=== PATIENT | female | born 1935 | race Caucasian/White ===

== ENCOUNTER 2016-06-26 19:16 | Emergency (ER) | payer MEDICARE, BC ==
[~2016-06-26] VITALS: Ht 167.6 cm; Wt 79.5 kg
[2016-06-26 19:33] VITALS: BP 169/91
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
[2016-06-26] MEDS ORDERED: TETANUS AND DIPHTHERIA TOX/PF 0.5 ML VIAL. VAX IM ONE (20:15)
[2016-06-26] MEDS ORDERED: DIPHTH,PERTUSS(ACELL),TET TOX 0.5 ML DISP.SYRIN. VAX IM ONE (20:45)
[2016-06-26] MEDS ORDERED: AMOXICILLIN/K CLAV 875/125MG TABLET. PO ONE (21:00)
== END 2016-06-26 20:48 | disposition home or self-care (01) ==
LOC: ER 19:16
DX: S61.451A Open bite of right hand, initial encounter (principal); W55.01XA Bitten by cat, initial encounter; Y93.89 Activity, other specified; Y99.8 Other external cause status; Y92.89 Other specified places as the place of occurrence of the external cause
CPT/HCPCS: 90471; 90715; 99283-25

== ENCOUNTER 2016-07-30 15:16 | Emergency (ER) | payer MEDICARE, BC ==
[~2016-07-30] VITALS: Ht 167.6 cm; Wt 79.5 kg
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
--- NOTE | 2016-07-30 16:15 | RAD ---
Right knee radiographs History: Right knee pain, fall previous night. Comparison: None. Findings: AP, lateral, and oblique views of the right knee. No acute fracture or dislocation is identified. No definite joint effusion is seen. There is evidence of medial knee soft tissue swelling. Impression: No acute osseous traumatic injury identified.
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
--- NOTE | 2016-07-30 16:41 | RAD ---
CT cervical spine without contrast History: Fall, trauma. Comparison: None. Technique: Noncontrast helical CT of the cervical spine was performed from the skull base through the T3 level. Axial, sagittal, and coronal reconstructions were obtained. One or more of the following individualized dose reduction techniques were utilized for the study: Automated exposure control Adjustment of mA and/or kV according to patient's size Use of iterative reconstruction technique. Findings: There is no evidence of acute fracture or acute malalignment. No prevertebral soft tissue swelling is identified. Multilevel degeneration is seen with facet and uncovertebral hypertrophy. Impression: 1. No acute osseous traumatic injury identified in the cervical spine. 2. Degeneration.
[2016-07-30] MEDS ORDERED: MORP15TA PO ×2 (17:16→18:23)
--- NOTE | 2016-07-30 17:16 | PHYS DOC ---
Past History Past Medical History: Depression, GERD, Hypothyroid, Kidney Stones Past Surgical History: Appendectomy, Hysterectomy, Tonsillectomy Alcohol Use: Occasionally Drug Use: None Adult General Chief Complaint Chief Complaint: UPPER EXTREMITY PAIN HPI HPI 80-year-old female presenting the emergency department today with left elbow pain and right knee pain. She sustained a fall last night after tripping over her pet cat in her kitchen. She reports hitting her head but did not lose consciousness. She has pain in her left elbow that is sharp worse with movement of the elbow intermittent and without alleviating factors. She also has pain in her right knee is worse with walking. She denies any other injuries. Review of systems is negative for chest pain abdominal pain shortness of breath confusion or numbness weakness or tingling. All other review of systems is negative unless otherwise noted in history of present illness. Pertinent physical exam findings showed that the left elbow had limited range of motion secondary to pain. Normal neurovascular status distally. 2 second cap refill. The patient's right knee has a mild effusion without any ecchymosis overlying. Normal neurovascular status distally. She has mild pain with passive range of motion of the knee. Knee joint is stable. No laxity with varus or valgus stress testing. Negative Fanta's test. Otherwise the patient has ecchymosis to the right facial region with a nontender neck with normal range of motion of the neck. ED course: 80-year-old female with left elbow pain and right knee pain and face trauma. Vital signs unremarkable other than mild chronic hypertension. And which were remarkable for a possible occult radial fracture CT of the face and head were negative for acute pathology. Patient given a sling and referred to either her primary care physician or our orthopedic team. Review of Systems Review of Systems SEE ABOVE. Allergies Allergies Allergies Coded Allergies Type Severity Reaction Last Updated Verified No Known Drug Allergies 11/23/15 No Physical Exam Physical Exam Constitutional: Well developed, well nourished, no acute distress, non-toxic appearance. [] HENT: Normocephalic, bilateral external ears normal, oropharynx moist, no oral exudates, nose normal. [] Eyes: PERRLA, EOMI, conjunctiva normal, no discharge. Neck: Normal range of motion, no tenderness, supple, no stridor. [] Cardiovascular:Heart rate regular rhythm, no murmur [] Lungs & Thorax: Bilateral breath sounds clear to auscultation Abdomen: Bowel sounds normal, soft, no tenderness, no masses, no pulsatile masses. [] Skin: Warm, dry, no erythema, no rash. Back: No tenderness, no CVA tenderness. [] Extremities: see above Neurologic: Alert and oriented X 3, normal motor function, normal sensory function, no focal deficits noted. Psychologic: Affect normal, judgement normal, mood normal. [] Current Patient Data Vital Signs Vital Signs Date Time Temp Pulse Resp B/P (MAP) Pulse Ox O2 Delivery O2 Flow Rate FiO2 07/30/16 15:25 98.1 78 18 98 Room Air EKG EKG [] Radiology/Procedures Radiology/Procedures [] Course & Med Decision Making Course & Med Decision Making Pertinent Labs and Imaging studies reviewed. (See chart for details) [] Dragon Disclaimer Dragon Disclaimer This chart was dictated in whole or in part using Voice Recognition software in a busy, high-work load, and often noisy Emergency Department environment. It may contain unintended and wholly unrecognized errors or omissions. Departure Departure: Impression: Primary Impression: Left elbow pain Additional Impressions: Right knee injury Head injury Left radial fracture Disposition: HOME, SELF-CARE Condition: STABLE Referrals: HOWIE ARDON MD (PCP) Patient Instructions: Radial Head Fracture Additional Instructions: Thank you for allowing us to participate in your care today. Followup with your primary care physician in 3 days if your symptoms do not improve. If you do not have a primary care provider you can ask for a list of our primary care providers. Return to the emergency department you have any new or concerning findings. This should be evaluated by the primary care physician and any necessary consulting services for continued management within a few days after discharge. Return to emergency room if you have any new or concerning symptoms including but not limited to fever, chills, nausea, vomiting, intractable pain, any new rashes, chest pain, shortness of air, uncontrolled bleeding, difficulty breathing, and/or vision loss. You may have been prescribed medication that can change in your level of thinking and ability to operate machinery. These medications include hydrocodone and Ativan. Also, Benadryl has been known to do this as well. Be sure to check with your pharmacist and ask if the medications you've prescribed can affect your level of consciousness. I recommend not operating heavy machinery or driving while on medication such as these. Scripts Morphine Sulfate (MORPHINE SULFATE) 15 Mg Tablet 15 MG PO PRN Q8HRS Y for PAIN, #8 TAB One pill by mouth up to once every 8 hours as needed for pain. Caution with use of this medication as it may cause dizziness, no driving or operating machinery while taking this medication. Prov: CHAPARRO ANGULO DO 07/30/16 Morphine Sulfate (MORPHINE SULFATE) 15 Mg Tablet 1 TAB PO PRN Q8HRS Y for SEVERE PAIN, #8 TAB Be careful as this medication may make you sleepy or drowsy. Do not drive or operate heavy machinery on this medication. Be sure to ask the pharmacist about other side effects that can exist such as constipation. Prov: DIVYA SCHROEDER MD 07/30/16 Problem Qualifiers Additional Impressions: Left radial fracture Encounter type: initial encounter DIVYA SCHROEDER MD July 30, 2016 17:16
[2016-07-30 18:00] VITALS: BP 133/71
== END 2016-07-30 18:25 | disposition home or self-care (01) ==
LOC: ER 15:16
DX: S52.125A Nondisplaced fracture of head of left radius, initial encounter for closed fracture (principal); S89.91XA Unspecified injury of right lower leg, initial encounter; S09.90XA Unspecified injury of head, initial encounter; K21.9 Gastro-esophageal reflux disease without esophagitis; E03.9 Hypothyroidism, unspecified; Z87.442 Personal history of urinary calculi; W01.0XXA Fall on same level from slipping, tripping and stumbling without subsequent striking against object, initial encounter; Y93.89 Activity, other specified; Y99.8 Other external cause status; Y92.89 Other specified places as the place of occurrence of the external cause
CPT/HCPCS: 70450; 70486; 72125; 73080; 73562; 99284

== ENCOUNTER 2017-04-18 19:21 | Emergency (ER) | payer MEDICARE ==
[~2017-04-18] VITALS: Ht 167.6 cm; Wt 78.0 kg
[~2017-04-18 19:21] MED LIST: MORP15TA PO
--- NOTE | 2017-04-18 20:00 | ED.ADGEN ---
Past History Past Medical History: Depression, GERD, Hypothyroid, Kidney Stones Past Surgical History: Appendectomy, Hysterectomy, Tonsillectomy Alcohol Use: Occasionally Drug Use: None Adult General Chief Complaint Chief Complaint " I was going down the stairs.. I was out to find my dog. 'Roque..'. " " I missed stepped and went down on my Lt side... 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 Pt. has neck pain, Lt. shoulder , clavicle, knee and hand pain. Pt. has noted abrasion to Lt knee. Has ecchymosis, edema on all the way down lt. side. All contusions appear superficial. . Pt. able to do straight leg lift. Was ambulatory at scene. No loss of consciousness. Hand is swelling and unable to remove wedding ring. Pt. unable to do ROM Lt. shoulder due to pain in AC which appears displaced. Review of Systems Review of Systems Constitutional: Denies fever or chills [] Eyes: Denies change in visual acuity, redness, or eye pain [] HENT: Denies nasal congestion or sore throat [] Respiratory: Denies cough or shortness of breath [] Cardiovascular: No additional information not addressed in HPI [] GI: Denies abdominal pain, nausea, vomiting, bloody stools or diarrhea [] : Denies dysuria or hematuria [] Musculoskeletal: Denies back pain or joint pain Painful lt side as per HPI Integument: Denies rash or skin lesions [] Neurologic: Denies headache, focal weakness or sensory changes [] Endocrine: Denies polyuria or polydipsia [] All other systems were reviewed and found to be within normal limits, except as documented in this note. Family History Family History Noncontributory to presentation Current Medications Current Medications Current Medications Medications (Trade) Dose Ordered Sig/Iron Start Time Stop Time Status Last Admin Dose Admin Diphtheria/ Tetanus/Acell Pertussis (Boostrix) 0.5 ml ONCE ONCE 04/18/17 20:15 04/18/17 20:16 DC Hydrocodone Bitartrate/ Ibuprofen (Vicoprofen 7.5-200) 2 tab 1X ONCE 04/18/17 21:00 04/18/17 21:05 DC Oxycodone/ Acetaminophen (Percocet 10/325) 1 tab 1X ONCE 2/16/18 20:15 04/18/17 20:16 DC 04/18/17 20:39 1 TAB Allergies Allergies Allergies Coded Allergies Type Severity Reaction Last Updated Verified No Known Drug Allergies 04/18/17 No Physical Exam Physical Exam Constitutional: in acute distress, non-toxic appearance. [] HENT: Normocephalic, atraumatic, bilateral external ears normal, oropharynx moist, no oral exudates, nose normal. Hard of hearing Eyes: PERRLA, EOMI, conjunctiva normal, no discharge. [] Neck: Decreased range of motion, cervical tenderness, supple, no stridor. [] Cardiovascular:Heart rate regular rhythm, no murmur [] Lungs & Thorax: Bilateral breath sounds clear to auscultation [] Abdomen: Bowel sounds normal, soft, no tenderness, no masses, no pulsatile masses. [] Skin: Warm, dry, no erythema, no rash. Except abrasion as per left knee and contusions as per history of present illness Back: No tenderness, no CVA tenderness. [] Extremities: No tenderness, right side no cyanosis, no clubbing, ROM intact, no edema. Except left sided contusions, and findings in left shoulder AC separation, and contusions as per history of present illness. Arthritic changes Neurologic: Alert and oriented X 3, normal motor function, normal sensory function, no focal deficits noted. [] Psychologic: Affect anxious, judgement normal, mood normal. [] Current Patient Data Vital Signs Vital Signs Date Time Temp Pulse Resp B/P (MAP) Pulse Ox O2 Delivery O2 Flow Rate FiO2 04/18/17 22:25 81 20 138/74 (95) 97 Room Air 04/18/17 19:25 98.6 EKG EKG Pt. decline EKG[] Radiology/Procedures Radiology/Procedures My interpretation chest x-ray shows no acute cardiopulmonary findings. Does have a nodule left lower lung field. Appears to bend presents to our previous x- ray 11/22/13, does have findings of before meals separation left shoulder. Degenerative joint changes of spine. Knee shows edema and degenerative joint changes.[] My interpretation of CT shows no shift, mass, edema, or fracture. Does have some findings of atrophy. There is significant degenerative joint changes of neck. No obvious fracture Course & Med Decision Making Course & Med Decision Making Pertinent Labs and Imaging studies reviewed. (See chart for details). Pt. declined labs. Will obtain if she has surgery. Discussed presentation,testing and tx. plan with Dr. Mckay. Pt. to follow with Dr. Townsend- because she has seen him before. If unable to get in Dr. Mckay advised he would see her Friday morning. Ice, sling, elevation. Tylenol and Ibuprofen for pain. Marked pain Vicoprofen up 4 x day. Follow up with orthro. May take out of sling 4 x day and do passive ROM. [] Final Impression Final Impression 1. Fall[] 2. Contusions Lt side of body 3. Abrasion Lt Knee 4. Lt. AC separation and rotator cuff tear 5. Left lower lobe lung nodule Problems: Dragon Disclaimer Dragon Disclaimer This electronic medical record was generated, in whole or in part, using a voice recognition dictation system. RIZWAN SAUER MD Apr 18, 2017 20:00
[2017-04-18] MEDS ORDERED: DIPHTH,PERTUSS(ACELL),TET TOX 0.5 ML DISP.SYRIN. VAX IM ONE (20:15)
[2017-04-18] MEDS ORDERED: oxyCODONE/APAP 10/325 1 TAB TABLET PO ONE (20:15)
[2017-04-18] MEDS ORDERED: HYDROcodon/IBUPROFEN 7.5/200MG 1 TAB TABLET PO ONE (21:00)
[2017-04-18] MEDS ORDERED: HYDR-79 PO (21:42)
--- NOTE | 2017-04-18 22:10 | RAD ---
Examination: CT head and cervical spine without contrast HISTORY: History of fall, pain COMPARISON: CT head from 07/30/2016 TECHNIQUE: Axial CT images of the head was performed without contrast. Axial CT images of cervical spine were performed without contrast. Coronal and sagittal reformats are performed Exposure: One or more of the following individualized dose reduction techniques were utilized for this examination: 1. Automated exposure control 2. Adjustment of the mA and/or kV according to patient size 3. Use of iterative reconstruction technique FINDINGS: There is no evidence of midline shift. There is no acute intracranial bleed or extra-axial fluid collection identified. The camarena-white matter differentiation is maintained. The visualized lateral ventricles, third ventricle, fourth ventricle appropriate for age. The basal cisterns are uneffaced. 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 The visualized paranasal sinuses, mastoid air cells are clear. The cervical vertebral body heights are maintained. The lateral masses of C1 are aligned with C2 vertebra. The C2 dens appears intact. The bilateral facets are well aligned. Mild intervertebral disc height loss identified throughout the cervical spine. No evidence of prevertebral soft tissue swelling. The apical lungs are clear. IMPRESSION: 1. No acute intracranial findings. 2. No acute fracture cervical spine. Correlate clinically. 3. Mild degenerative changes cervical spine. Electronically signed by: Adair Mcgovern MD (04/18/2017 10:07 PM) [facility]
[2017-04-18 22:25] VITALS: BP 138/74
--- NOTE | 2017-04-19 08:27 | RAD ---
EXAM: Left hand 3 views. HISTORY: Fall. COMPARISON: None. FINDINGS: No fractures are identified. The scapholunate interval is increased, suggesting scapholunate ligament disruption and dorsal intercalated segmental instability. 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 1st carpometacarpal and triscaphe osteoarthritis is moderate to severe. Metacarpophalangeal osteoarthritis is moderate diffusely, worst at the 1st ray. IMPRESSION: 1. No fracture. Findings consistent with scapholunate ligament disruption and dorsal intercalated segmental instability. 2. 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
--- NOTE | 2017-04-19 08:34 | RAD ---
EXAM: Left knee, 4 views HISTORY: Left knee pain. Fall. COMPARISON: None. FINDINGS: No fractures are identified. There is mild to moderate medial compartmental predominant tricompartmental osteoarthritis for patient age. Alignment is normal. There is no joint effusion. IMPRESSION: 1. No fracture. 2. 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
--- NOTE | 2017-04-19 08:36 | RAD ---
EXAM: Left shoulder 3 views. HISTORY: Fall with left shoulder pain. COMPARISON: None. FINDINGS: There is mild superior subluxation of the distal clavicle. The coracoclavicular distance is 1.8 cm. Glenohumeral joint spaces and alignment appear maintained. No fractures are identified. IMPRESSION: 1. Findings suggesting acromioclavicular separation. Correlate to ensure stability.
--- NOTE | 2017-04-19 08:39 | RAD ---
EXAM: Chest 2 views. HISTORY: Fall. COMPARISON: 11/22/2013. FINDINGS: Frontal and lateral views of the chest are obtained. A nodule in the left base measures 9 mm and has a correlate on the prior study. There are no confluent infiltrates. There is no pneumothorax or pleural effusion. The heart is not enlarged. There is a large hiatal hernia. Surgical clips project over the lower mediastinum. There are atherosclerotic calcifications of the aorta. IMPRESSION: 1. A 9 mm nodule in the left base appears chronic is likely benign. Radiographic follow-up or CT could further exclude a parenchymal lesion if there is persistent concern. 2. Recurrent large hiatal hernia.
== END 2017-04-18 22:30 | disposition home or self-care (01) ==
LOC: ER 19:21
DX: S46.012A Strain of muscle(s) and tendon(s) of the rotator cuff of left shoulder, initial encounter (principal); S10.93XA Contusion of unspecified part of neck, initial encounter; S80.212A Abrasion, left knee, initial encounter; R91.8 Other nonspecific abnormal finding of lung field; K21.9 Gastro-esophageal reflux disease without esophagitis; E03.9 Hypothyroidism, unspecified; Z87.442 Personal history of urinary calculi; W10.8XXA Fall (on) (from) other stairs and steps, initial encounter; Y93.89 Activity, other specified; Y99.8 Other external cause status; Y92.89 Other specified places as the place of occurrence of the external cause
CPT/HCPCS: 29240; 70450; 71046; 72125; 73030; 73130; 73564; 99284-25